=== PATIENT | male | born 1975 | race Caucasian/White ===

== ENCOUNTER 2017-11-21 07:53 | Day surgery (SDC) | payer BC ==
[2017-11-20 15:03] LABS: BASOPHILS # (AUTO) 0.1 X10'3 (0-0.2); BASOPHILS % (AUTO) 1.1 % (0-1); EOSINOPHILS # (AUTO) 0.4 X10'3 (0-0.9); EOSINOPHILS % (AUTO) 5.5 % (0-6); LYMPHOCYTES % (AUTO) 28.8 % (21-51); MEAN CORPUSCULAR HEMOGLOBIN 30.3 PG (27.0-31.0); MEAN CORPUSCULAR HGB CONC 33.2 % (33.0-36.5); MEAN CORPUSCULAR VOLUME 91.2 FL (78-98); MONOCYTES # (AUTO) 0.6 X10'3 (0-0.9); MONOCYTES % (AUTO) 8.1 % (2-12); NEUTROPHILS # (AUTO) 3.9 X10'3 (1.8-7.7); NEUTROPHILS % (AUTO) 56.5 % (42-75); PRE OP HEMOGLOBIN 15.6 g/dL (14.0-17.9); PRE OP PLATELET COUNT 352 X10'3 (140-440); RED BLOOD COUNT 5.15 X10'6 (4.70-6.10); RED CELL DISTRIBUTION WIDTH 13.5 % (11.5-14.5)
[2017-11-20 15:05] LABS: CLARITY,URINE CLEAR (Clear); COLOR,URINE YELLOW (Yellow); GLUCOSE, URINE NEGATIVE (Neg); KETONES,URINE NEGATIVE (Neg); LEUKOCYTE ESTERASE ,URINE NEGATIVE (Neg); NITRITES, URINE NEGATIVE (Neg); OCCULT BLOOD,URINE NEGATIVE (Neg); PH,URINE 6.5 (4.8-8.0); PROTEIN,URINE NEGATIVE (Neg); UROBILINOGEN,URINE 0.2 E.U/dL (0.2-1.0)
[2017-11-20 15:06] LABS: UA COLLECTION TYPE CLN CATCH MIDSTREAM
[2017-11-20 15:18] LABS: ALBUMIN 4.1 G/DL (3.4-5.0); ALBUMIN/GLOBULIN RATIO 1.1 (1.1-1.5); ALKALINE PHOSPHATASE 87 IU/L (46-116); BLOOD UREA NITROGEN 15 MG/DL (7-18); BUN/CREATININE RATIO 18.5 (5.4-32.0); CALCIUM 9.3 MG/DL (8.5-10.1); CHLORIDE 104 MMOL/L (99-107); CREATININE 0.81 MG/DL (0.60-1.10); PRE OP ALT 77 U/L (30-65); PRE OP ANION GAP 5 (8-16); PRE OP AST 30 U/L (10-37); PRE OP SODIUM 140 MMOL/L (135-145); TOTAL CARBON DIOXIDE 31.3 MMOL/L (24-32); TOTAL PROTEIN 7.7 G/DL (6.4-8.2); eGFR > 90 ML/MIN
[2017-11-20 15:24] LABS: PRE OP GLUCOSE 103 MG/DL (70-104)
[~2017-11-21] VITALS: Ht 191.8 cm; Wt 106.3 kg
[2017-11-21] VITALS (7 sets, daily range): BP systolic 111–136; BP diastolic 67–93
[~2017-11-21 07:53] MED LIST: DIPH25CA83 PO; IBUP-24 PO; MULT-38 PO; OMEG1CAP13 PO; albuterol 2.5 MG/3 ML nebule NEB ONE; cefazolin/dext.iso 2gm/100 ML IV ONE; famotidine 20mg tablet PO ONE; ringers solution, lacted 1,000 ML IV SCH
[2017-11-21] MEDS ORDERED: LIDOcaine 1% (10mg/ml) 2ml vial ONE (08:44)
[2017-11-21] MEDS ORDERED: BUPIVAcaine/PF 2.5mg/ml (0.25%) 10ml vial ONE (10:09)
[2017-11-21] MEDS ORDERED: labetalol 20mg/4ml (5mg/ml) syringe IV ONE (10:16)
[2017-11-21] MEDS ORDERED: glycopyrrolate 0.2mg/ml inj ONE (10:16)
[2017-11-21] MEDS ORDERED: neostigmine methylsulfate 1 MG/ML 10ml vial ONE (10:16)
[2017-11-21] MEDS ORDERED: sevoflurane 250ml liquid IH ONE (10:16)
[2017-11-21] MEDS ORDERED: propofol 10mg/ml 20ml vial IV ONE (10:16)
[2017-11-21] MEDS ORDERED: MIDAZolam 5mg/5ml vial ONE (10:17)
[2017-11-21] MEDS ORDERED: morphine 10mg/ml inj. ONE ×2 (10:17→10:18)
[2017-11-21] MEDS ORDERED: LIDOcaine 2% (20mg/ml) 5ml vial ONE (10:18)
[2017-11-21] MEDS ORDERED: propofol inj 20 ML IV ONE (10:18)
[2017-11-21] MEDS ORDERED: dexamethasone sod phosphate 4mg/ml inj. ONE (10:19)
[2017-11-21] MEDS ORDERED: rocuronium 10mg/ml inj IV ONE (10:19)
[2017-11-21] MEDS ORDERED: ondansetron/PF 4mg/2ml inj ONE (10:19)
[2017-11-21] MEDS ORDERED: ondansetron/PF 4mg/2ml inj IV PRN (10:50)
[2017-11-21] MEDS ORDERED: hydrALAZINE 20mg/ml inj. IV PRN (10:50)
[2017-11-21] MEDS ORDERED: labetalol 20mg/4ml (5mg/ml) syringe IV PRN (10:50)
[2017-11-21] MEDS ORDERED: fentaNYL/PF 50MCG/1 ML 2ML syringe IV PRN ×2 (10:50)
[2017-11-21] MEDS ORDERED: ringers solution, lacted 1,000 ML IV SCH (10:50)
[2017-11-21] MEDS ORDERED: morphine 4 MG/ML inj SYRINge IV PRN ×2 (10:50)
== END 2017-11-21 12:40 | disposition home or self-care (01) ==
LOC: PAS 07:53
PROVIDERS: ATTEND Surgery
DX: K42.9 Umbilical hernia without obstruction or gangrene (principal); I10 Essential (primary) hypertension; K21.9 Gastro-esophageal reflux disease without esophagitis; F41.8 Other specified anxiety disorders; F32.9 Major depressive disorder, single episode, unspecified; F17.210 Nicotine dependence, cigarettes, uncomplicated; F10.21 Alcohol dependence, in remission; Z79.1 Long term (current) use of non-steroidal anti-inflammatories (NSAID); Z79.899 Other long term (current) drug therapy; Z98.890 Other specified postprocedural states; Z83.3 Family history of diabetes mellitus
CPT/HCPCS: 36415; 49585; 80053; 81003; 85025; 93005; 94640; 94760; A6449; C1781; J0690; J1100; J2001; J2250; J2270; J2405; J2704; J2710; J3490; A7000; J7120

== ENCOUNTER 2018-12-25 07:09 | Day surgery (SDC) | payer BC ==
[2018-12-21 15:55] LABS: CLARITY,URINE CLEAR (Clear); COLOR,URINE YELLOW (Yellow); GLUCOSE, URINE NEGATIVE (Neg); KETONES,URINE NEGATIVE (Neg); LEUKOCYTE ESTERASE ,URINE NEGATIVE (Neg); NITRITES, URINE NEGATIVE (Neg); OCCULT BLOOD,URINE NEGATIVE (Neg); PH,URINE 6.5 (4.8-8.0); PROTEIN,URINE NEGATIVE (Neg); UROBILINOGEN,URINE 0.2 E.U/dL (0.2-1.0)
[2018-12-21 15:56] LABS: UA COLLECTION TYPE VOIDED
[2018-12-21 15:59] LABS: BASOPHILS # (AUTO) 0.1 X10'3 (0-0.2); EOSINOPHILS # (AUTO) 0.2 X10'3 (0-0.9); EOSINOPHILS % (AUTO) 3.8 % (0-6); LYMPHOCYTES # (AUTO) 1.8 X10'3 (1.1-4.8); LYMPHOCYTES % (AUTO) 31.8 % (21-51); MEAN CORPUSCULAR HEMOGLOBIN 30.9 PG (27.0-31.0); MEAN CORPUSCULAR HGB CONC 33.7 g/dL (33.0-36.5); MEAN CORPUSCULAR VOLUME 91.9 FL (78-98); MEAN PLATELET VOLUME 7.8 FL (7.4-10.4); MONOCYTES # (AUTO) 0.6 X10'3 (0-0.9); NEUTROPHILS % (AUTO) 53.4 % (42-75); PRE OP HEMOGLOBIN 14.2 g/dL (14.0-17.9); PRE OP PLATELET COUNT 335 X10'3 (140-440); RED BLOOD COUNT 4.58 X10'6 (4.70-6.10)
[2018-12-21 16:10] LABS: ALBUMIN 3.9 G/DL (3.4-5.0); ALBUMIN/GLOBULIN RATIO 1.1 (1.1-1.5); ALKALINE PHOSPHATASE 84 IU/L (46-116); BLOOD UREA NITROGEN 12 MG/DL (7-18); BUN/CREATININE RATIO 15.6 (5.4-32.0); CALCIUM 9.5 MG/DL (8.5-10.1); CHLORIDE 105 MMOL/L (99-107); CREATININE 0.77 MG/DL (0.60-1.10); PRE OP ALT 28 U/L (30-65); PRE OP ANION GAP 6 (8-16); PRE OP AST 20 U/L (10-37); PRE OP BILIRUB, TOTAL 0.6 MG/DL (0.0-1.0); PRE OP GLUCOSE 77 MG/DL (70-104); PRE OP SODIUM 141 MMOL/L (135-145); TOTAL CARBON DIOXIDE 30.2 MMOL/L (24-32); TOTAL PROTEIN 7.4 G/DL (6.4-8.2); eGFR > 90 ML/MIN
[~2018-12-25] VITALS: Ht 191.8 cm; Wt 94.3 kg
[~2018-12-25 07:09] MED LIST changes: -DIPH25CA83 PO; +ECHINACEA; +ESCI10TA54 PO; -IBUP-24 PO; -MULT-38 PO; +VITAMIN C; -albuterol 2.5 MG/3 ML nebule NEB ONE; -cefazolin/dext.iso 2gm/100 ML IV ONE; +cefazolin/dext.iso 2gm/50ml 50 ML IV ONE
[2018-12-25 07:25] VITALS: BP 126/75
[2018-12-25] MEDS ORDERED: ringers solution, lacted 1,000 ML IV SCH (09:53)
[2018-12-25] MEDS ORDERED: meperidine/PF 25mg/ml syringe IV PRN ×3 (09:55)
[2018-12-25] MEDS ORDERED: ondansetron/PF 4mg/2ml inj IV PRN (09:55)
[2018-12-25] MEDS ORDERED: morphine 4 MG/ML inj SYRINge IV PRN ×2 (09:55)
[2018-12-25] MEDS ORDERED: proCHLORperazine 10 MG/2 ml inj IV PRN (09:55)
[2018-12-25] MEDS ORDERED: BUPIVAcaine/PF 2.5 mg/ml (0.25%) 30ml vial ONE (10:32)
[2018-12-25] MEDS ORDERED: BUPIVACAINE liposomal/PF 13.3 MG/ML vial IM ONE (10:33)
[2018-12-25] MEDS ORDERED: sevoflurane 250ml liquid IH ONE (10:50)
[2018-12-25] MEDS ORDERED: dexamethasone sod phosphate 10mg/ml inj ONE (10:50)
[2018-12-25] MEDS ORDERED: fentaNYL/PF 50MCG/1 ML 2ML syringe ONE (11:02)
[2018-12-25] MEDS ORDERED: midazolam 2 mg/2 ml injection ONE (11:02)
[2018-12-25] MEDS ORDERED: propofol inj 20 ML IV ONE (11:15)
[2018-12-25] MEDS ORDERED: LIDOcaine 2% (20mg/ml) 5ml vial ONE (11:15)
[2018-12-25] MEDS ORDERED: ketorolac trometh. 30mg/ml inj. ONE (11:16)
[2018-12-25] MEDS ORDERED: methylene blue (5mg/ml) 50mg/10ml ampul IV ONE (11:16)
[2018-12-25] MEDS ORDERED: BUPIVAcaine/PF 2.5mg/ml (0.25%) 10ml vial ONE (11:34)
[2018-12-25 11:52] VITALS: BP 138/89
--- NOTE | 2018-12-25 11:52 | NUR ---
Received from OR via , accompanied by Anesthesiologist DR HONG and report given by Anesthesiolgist. AWAKENS TO VOICE. VITALS STABLE. DRESSING DI. PAUL PAIN.
[2018-12-25 12:02] VITALS: BP 132/79
[2018-12-25 12:12] VITALS: BP 123/84
[2018-12-25 12:22] VITALS: BP 127/80
[2018-12-25 12:32] VITALS: BP 124/82
--- NOTE | 2018-12-25 12:52 | NUR ---
AWAKE AND ORIENTED. VITALS STABLE. DRESSING DI. PAUL PAIN. HOME WITH HIS SISTER AT THIS TIME.
== END 2018-12-25 12:52 | disposition home or self-care (01) ==
LOC: PAS 07:09
PROVIDERS: ATTEND Surgery
DX: K60.3 Anal fistula (principal); K64.4 Residual hemorrhoidal skin tags; K21.9 Gastro-esophageal reflux disease without esophagitis; F17.210 Nicotine dependence, cigarettes, uncomplicated; F41.9 Anxiety disorder, unspecified; F32.9 Major depressive disorder, single episode, unspecified; I10 Essential (primary) hypertension; Z98.1 Arthrodesis status; Z79.899 Other long term (current) drug therapy
CPT/HCPCS: 36415; 46270; 46999; 80053; 81003; 82948; 85025; 93005; A6266; C9290; J1100; J1885; J2001; J2250; J2704; J3010; J3490; J7120; Q9968; A4215; A4618; A6449; A7000